=== PATIENT | female | born 1975 | race Caucasian/White ===

== ENCOUNTER 2017-12-31 16:35 | Inpatient (IN) | payer MEDICAID, SELFPAY ==
[2017-12-31 16:22] VITALS: BMI 36.9
[2017-12-31] MEDS: Lactated Ringers 1,000 ML 50 ML IV (16:50)
--- NOTE | 2017-12-31 17:27 | PCM.HP.OB ---
- Problem List (1) Polyhydramnios affecting Status: Acute (2) Advanced maternal age (AMA) in Status: Acute History Date of Admission: 12/31/17 Final PRINCESS: 01/16/18 Final PRINCESS Source: US <20 weeks Gestational age: 37 Weeks and 5 Days History of this : 42yo @ 37.5 wks c/o vaginal bleeding- pt was found to be 5-6cm with irregular contractions and made change to 7-8cm. pt was admitted in active labor. pt has h/o Polyhydramnios in and AMA. Allergies No Known Allergies Allergy (Verified 11/14/17 02:40) Current Medications Acetaminophen (Tylenol) 325 - 650 mg PO Q4H PRN PRN PRN Reason: PAIN OR FEVER >100.4F Al Hydroxide/Mg Hydroxide (Mylanta Ii) 15 - 30 ml PO Q4H PRN PRN PRN Reason: INDIGESTION Citric Acid/Sodium Citrate (Bicitra) 30 ml PO UD PRN Lactated Ringer's () 1,000 mls @ 50 mls/hr IV .Q20H CISCO Nalbuphine HCl (Nubain) 5 - 10 mg IV Q3H PRN PRN PRN Reason: PAIN (4-10/10) Ondansetron HCl (Zofran) 4 mg IV Q8H PRN PRN PRN Reason: NAUSEA Promethazine HCl (Phenergan (Ll)) 6.25 - 12.5 mg IV Q4H PRN PRN; Protocol PRN Reason: IF NAUSEA PERSISTS Sodium Chloride () 5 - 15 ml IV UD CISCO Alcohol: None Drug Use: none Number of Fetus(es): 1 Review of Systems Gastrointestinal: Reports: Abdominal Pain Physical Exam General: Alert, Oriented x3 Abdomen: Soft, Gravid Estimated gestational size: Appropriate for gestational size Presentation: Cephalic Cervix Dilation (cm): 7.5 Station: -2 Effacement (%): 80 Assessment/Plan Active and Suspected Problems Polyhydramnios affecting (Acute) Advanced maternal age (AMA) in (Acute) 42yo @ 37.5 wks, Polyhydramnios, AMA in active labor 1) admit 2) FHR/TOCO 3) PNL reviewed, GBS negative, O+, Rub imm, Syphilis Neg, HEP B neg, HIV NR 4) Nitrous for pain
[2017-12-31] MEDS: Oxytocin 30 units/NS 500 ml 30 UNITS/500 ML IV.SOLN 334 UNITS IV (17:45)
--- NOTE | 2017-12-31 17:59 | PCM.OB.VAG ---
- Problem List (1) Polyhydramnios affecting Status: Acute (2) Advanced maternal age (AMA) in Status: Acute Vaginal Delivery Maternal Presentation: Active Labor Amniotic Membrane Rupture Type: Artificial Amniotic Fluid Description: Clear Final PRINCESS: 01/16/18 Gestational age: 37 Weeks and 5 Days Date of Procedure: 12/31/17 Pre-Operative Diagnosis: Polyhydramnios, ama, term gestation in active labor Post-Operative Diagnosis: Same, live male born Surgery/ Procedure Performed: Spontaneous Vaginal Delivery Type of Anesthesia: None Description of Procedure: of live male born without complication. Delayed cord clamping performed. Presentation: Vertex Placental Delivery Description: Spontaneous Placenta Disposition: [facility] Cord Vessel Description: 3 Vessels Cord Entanglement: None Estimated Blood Loss: 250 A gender: Male (1 minute): 8 (5 minute): 8 Episiotomy Description: None Laceration: Vaginal Extension/lac - 1% lidocaine injected - Repaired with 3-0 rapide, 1st degree Medications given after delivery: IV Pitocin Complications: None
[2017-12-31] MEDS: Oxytocin 30 units/NS 500 ml 30 UNITS/500 ML IV.SOLN 167 UNITS IV (18:15)
[2017-12-31 19:29] LABS: Hematocrit 33.7 % (37-47); Hemoglobin 10.9 g/dl (12.0-15.0); Mean Corp Hgb Conc 32.3 g/gl (32-36); Mean Corpuscular Hgb 27.5 pg (27.0-32.0); Mean Corpuscular Volume 84.9 fL (81-99); Mean Platelet Vol. 11.6 fl (6.2-12.0); Platelet Count 275 K/mm3 (150-450); RBC Distribution Width CV 15.3 % (11.6-14.6); RBC Distribution Width SD 47.7 fl (35.1-43.9); Red Blood Count 3.97 M/mm3 (4.2-5.4); White Blood Count 16.5 K/mm3 (4.4-11.0)
[2017-12-31 19:30] LABS: Scan Indicated on CBC? Y/N NO
[2017-12-31 20:00] VITALS: BP 113/59; PULSE 78; RESP 18; TEMP 36.6; O2SAT 98
[2017-12-31] MEDS: Naproxen 250 MG Tablet PO (20:05)
--- NOTE | 2017-12-31 23:02 | DCINST_ITS ---
Discharge Diet: No Restrictions Discharge Activity: Return to Normal Activity, May not drive while taking narcotic pain medications., May Shower May resume sexual activity in: 4-6 weeks Additional Activity Instructions:: Nothing in the vagina for 4-6 weeks. You may return to work/school in 6 weeks. Call your doctor if your incision/area has: Continuous Slow Oozing, Sudden Increased Bleeding, Increased Pain/ Swelling, Increased Redness, Foul Smelling Discharge Additional Instructions: If you experience any of the following, contact your healthcare provider. * Bleeding that soaks a pad every hour for 2 hours * Fever 100.4 or higher * Unrelieved incision or abdominal pain * Swelling, redness, discharge or bleeding from your incision or episiotomy site * Your incision begins to separate * Problems urinating (including inability to urinate or burning while urinating) . * Visual changes * Severe headache * Flu-like symptoms * Pain or redness in one of both of your breasts * Pain, warmth, tenderness or swelling in your legs, especially the calf area * Frequent nausea and vomiting * Symptoms of depression or anxiety If you experience any of the following, call 911 or go to the nearest Emergency Room. * Chest pain * Problems breathing * Seizure activity * Partial or complete paralysis of a body part, slurred speech, weakness or drooping of the face, or a sudden inability to walk or hold your balance Allergies/Adverse Reactions: Allergies No Known Allergies Allergy (Verified 12/31/17 18:30) Medications to take at Discharge Vits [Prenatabs FA ] 1 tablet PO DAILY 07/26/15 Naproxen [Naprosyn] 250 - 500 mg PO Q8H PRN PRN #30 tab 12/31/17 The following prescriptions were given: Naproxen [Naprosyn] 250 - 500 mg PO Q8H PRN PRN #30 tab PRN Reason: Mild Pain (1-01/25) When: Call to make an appointment with your doctor in 6 weeks. If you had elevated Blood Pressure or 4th degree laceration you will need to be seen in 2 weeks. Primary Care Physician: Care Physician,No Primary [Primary Care Provider] -
[2017-12-31 23:30] VITALS: BP 131/63; PULSE 90; RESP 18; TEMP 36.5; O2SAT 98
[2018-01-01] MEDS: Naproxen 250 MG Tablet PO ×2 (04:19→12:40)
[2018-01-01 04:20] VITALS: BP 103/53; PULSE 86; RESP 18; TEMP 36.3
[2018-01-01] MEDS: Acetaminophen 500 MG Tablet PO (07:51)
[2018-01-01 08:27] VITALS: BP 115/73; PULSE 86; RESP 16; TEMP 36.7; O2SAT 98
--- NOTE | 2018-01-01 09:11 | PCM.PN.BLA ---
Progress Note S: Patient sitting up in bed, reports that baby has been very sleepy throughout the night and has not been latching well. Plans to talk and be seen by splunk consultant today. Otherwise patient denies any other issues at this time. Patient denies HALL, scotoma or dizziness. Denies any issues with ambulation or urination. O: VSS, Afebrile Nipples without cracks or blisters, no ecchymoses noted Abdomen NT x 4 quadrants, FF midline 2FB below umbilicus +2/4 reflexes in LE, no edema in LE, negative calf tenderness to palpation Perineum well-approximated, scant rubra lochia A: 42 y/o G2 now P2, PPD #1 s/p , Normal Course, Difficulties P: 1) consultation today 2) Patient may be discharged to home this evening pending discharge and improved feeding sessions 3) RTC in 4-5 weeks for pro-op visit. Patient desires PPTL, Title 19 form signed with patient today. Stefanie Kim CNM
--- NOTE | 2018-01-01 09:16 | PN_ITS ---
Progress Note S: Patient sitting up in bed, reports that baby has been very sleepy throughout the night and has not been latching well. Plans to talk and be seen by solar energy consultant and designer today. Otherwise patient denies any other issues at this time. Patient denies HALL, scotoma or dizziness. Denies any issues with ambulation or urination. O: VSS, Afebrile Nipples without cracks or blisters, no ecchymoses noted Abdomen NT x 4 quadrants, FF midline 2FB below umbilicus +2/4 reflexes in LE, no edema in LE, negative calf tenderness to palpation Perineum well-approximated, scant rubra lochia A: 42 y/o G2 now P2, PPD #1 s/p , Normal Course, Difficulties P: 1) consultation today 2) Patient may be discharged to home this evening pending discharge and improved feeding sessions 3) RTC in 4-5 weeks for pro-op visit. Patient desires PPTL, Title 19 form signed with patient today. Stefanie Kim CNM
[2018-01-01 11:29] VITALS: BP 133/70; PULSE 89; RESP 16; TEMP 36.9; O2SAT 98
--- NOTE | 2018-01-01 19:30 | NURSING ---
pt reports nicotine patch fell off after showering-pt handed patch to RN, RN discarded patch
[2018-01-01 20:15] VITALS: BP 130/76; PULSE 84; RESP 16; TEMP 37.2; O2SAT 97
[2018-01-02 01:40] VITALS: BP 129/80; PULSE 75; RESP 16; TEMP 37.2; O2SAT 98
[2018-01-02 08:10] VITALS: BP 121/79; PULSE 88; RESP 16; TEMP 36.6; O2SAT 99
--- NOTE | 2018-01-02 08:42 | PCM.PN.OB ---
Patient Problems: Active and Suspected Problems Polyhydramnios affecting (Acute) Advanced maternal age (AMA) in (Acute) Objective: pt seen at bedside, doing well. pt reports good pain control. Lochia mild. Bottle feeding. - Physical Exam General: Alert, Oriented x3 Abdomen: Soft, - - fundus firm Extremities: No Calf Tenderness Vital Signs Temp Pulse Resp BP Pulse Ox 98.9 F 75 16 129/80 H 98 01/02/18 01:40 01/02/18 01:40 01/02/18 01:40 01/02/18 01:40 01/02/18 01:40 Oxygen Delivery Method Room Air Weight: 97.7 kg Body Mass Index (BMI) 36.9 Intake and Output for Last 24 Hours 12/31/17 01/01/18 01/02/18 23:59 23:59 23:59 Intake Total 1300 / 1300 Output Total 400 / 400 Balance 900 / 900 Assessment/Plan Active and Suspected Problems Polyhydramnios affecting (Acute) Advanced maternal age (AMA) in (Acute) PPD#2, doing well routine care ambulation dc home
== END 2018-01-02 10:10 | disposition home or self-care (01) | DRG 373 ==
LOC: WPOUT 16:42
PROVIDERS: Admitting Provider Obstetrics & Gynecology; Visit Provider Obstetrics & Gynecology
DX: O40.3XX0 Polyhydramnios, third trimester, not applicable or unspecified (principal); O71.4 Obstetric high vaginal laceration alone; O09.523 Supervision of elderly multigravida, third trimester; Z3A.37 37 weeks gestation of pregnancy; Z37.0 Single live birth
CPT/HCPCS: 59025; 59050; 85027; 86850; 86900; 99218; J7120; G0378

== ENCOUNTER → 2018-03-18 07:27 | Outpatient (CLI) | payer MEDICAID, SELFPAY | PROVIDERS: Visit Provider Obstetrics & Gynecology | DX: Z53.9 Procedure and treatment not carried out, unspecified reason (principal) ==

== ENCOUNTER 2021-12-28 15:54 | Outpatient (CLI) | payer MEDICAID, SELFPAY ==
[2021-12-28 17:11] LABS: Absolute Lymphocyte Count 3.62 X10^3/uL (0.83-4.51); Absolute Neutrophil Count 6.4 X10^3/uL (2.0-7.7); Basophil# 0.06 X10^3/uL; Basophil% 0.5 % (0-1); Eosinophil# 0.37 X10^3/uL; Eosinophils% 3.2 % (0-5); Hematocrit 44.7 % (37-47); Hemoglobin 14.5 g/dL (12.0-15.0); Lymphocyte # 3.62 X10^3/ul (0.83-4.51); Lymphocyte % 31.8 % (19-41); Mean Corp Hgb Conc 32.4 g/dL (32-36); Mean Corpuscular Hgb 27.8 pg (27.0-32.0); Mean Corpuscular Volume 85.8 fL (81-99); Mean Platelet Vol. 11.1 fl (6.2-12.0); Monocyte# 0.86 X10^3/uL; Monocyte% 7.5 % (0-10); NRBC Flagged by Analyzer 0 % (0-5); Neutrophil # 6.41 X10^3/uL (2.7-7.7); Neutrophil % 56.3 % (47-70); Platelet Count 290 K/mm3 (150-450); RBC Distribution Width CV 14.2 % (11.6-14.6); RBC Distribution Width SD 44.1 fl (35.1-43.9); Red Blood Count 5.21 M/mm3 (4.2-5.4); White Blood Count 11.4 K/mm3 (4.4-11.0)
[2021-12-28 17:43] LABS: ALB/GLOB Ratio 0.7 RATIO (0.9-2.4); AST(SGOT) 14 U/L (15-37); Alanine Aminotransfer ALT/SGPT 28 U/L (13-56); Albumin, Serum 2.9 g/dL (3.2-5.0); Alkaline Phosphatase 80 U/L (45-117); Anion Gap 4 (5-15); BUN 13 mg/dL (7-18); BUN/Creat Ratio 16.3 RATIO (10-20); Calcium,Total 8.5 mg/dL (8.5-10.1); Chloride 102 mmol/L (98-107); EST Glomerular Filtration Rate 82 mL/min (>60); Est Glom Filt Rate - Afr Amer 100 mL/min (>60); Globulin 4.1 g/dL (2.2-4.2); Glucose 79 mg/dL (74-106); Potassium 3.9 mmol/L (3.5-5.1); Sodium Level 137 mmol/L (136-145); Thyroid Stim Hormone (TSH) 2.75 uIU/mL (0.358-3.74)
[2021-12-29 09:19] LABS: Hepatitis C Antibody Non-Reactive (Nonreactive); Vitamin D,25 Hydroxy 31.9 ng/mL
== END 2021-12-28 23:59 | disposition home or self-care (01) ==
LOC: POLAB3 15:55
PROVIDERS: PCP Family Medicine Geriatric Medicine; Visit Provider Family Medicine Geriatric Medicine
DX: Z00.00 Encounter for general adult medical examination without abnormal findings (principal); E55.9 Vitamin D deficiency, unspecified; R53.83 Other fatigue
CPT/HCPCS: 36415; 80053; 82306; 84443; 85025; 86803

== ENCOUNTER 2022-02-06 11:56 | Outpatient (CLI) | payer MEDICAID, SELFPAY ==
--- NOTE | 2022-02-06 12:00 | BI_ITS ---
MAMMOGRAPHY - BILATERAL SCREENING REASON FOR EXAM: Female, 46 years old. Routine annual screening examination. PERTINENT HISTORY: Non-contributory. TECHNIQUE: Digital bilateral breast norman (3D mammographic acquisition) in the CC and MLO projections. 2-D mediolateral oblique (MLO) and craniocaudad (CC) views of both breasts were obtained. CAD: Full Field Digital Mammography with Computer Added Detection was performed. COMPARISON: Comparison is made with prior outside examination dated 06/23/2020. FINDINGS: Breast Composition: There are scattered areas of fibroglandular density. There are no dominant masses or suspicious calcifications. There is a stable 7.5 mm well-defined nodule in the anterior slightly upper lateral aspect of the right breast. A central fatty hilum is seen most likely presenting a small lymph node. Stable small benign appearing bilateral axillary lymph nodes. No other significant abnormalities are identified. There has been no significant change since the prior study. BI/SCRN MAMM (CAD)W/NORMAN BILAT IMPRESSION: Stable bilateral screening mammogram. Yearly follow-up mammogram recommended. (A) ASSESSMENT CATEGORY: BIRADS Category 2: Benign. A letter regarding these results will be sent to the patient by the facility within 30 days. Approximately 10% of breast cancers are not detected by mammography. A normal mammogram should not delay biopsy of a clinically suspicious abnormality. [id number] Electronically Signed: Bo Grewal MD at 12:45 EDT ,
== END 2022-02-06 23:59 | disposition home or self-care (01) ==
PROVIDERS: PCP Family Medicine Geriatric Medicine; Visit Provider Family Medicine Geriatric Medicine
DX: Z12.31 Encounter for screening mammogram for malignant neoplasm of breast (principal)
CPT/HCPCS: 77063; 77067

== ENCOUNTER → 2022-03-28 | Outpatient (CLI) | payer MEDICAID, SELFPAY ==
[2022-03-28 17:10] LABS: Absolute Lymphocyte Count 3.51 X10^3/uL (0.83-4.51); Absolute Neutrophil Count 6.9 X10^3/uL (2.0-7.7); Basophil% 0.9 % (0-1); Eosinophil# 0.29 X10^3/uL; Eosinophils% 2.5 % (0-5); Hematocrit 40.8 % (37-47); Hemoglobin 13.4 g/dL (12.0-15.0); Lymphocyte # 3.51 X10^3/ul (0.83-4.51); Lymphocyte % 30.8 % (19-41); Mean Corp Hgb Conc 32.8 g/dL (32-36); Mean Corpuscular Hgb 28.9 pg (27.0-32.0); Mean Corpuscular Volume 87.9 fL (81-99); Mean Platelet Vol. 12.1 fl (6.2-12.0); Monocyte# 0.56 X10^3/uL; Monocyte% 4.9 % (0-10); NRBC Flagged by Analyzer 0 % (0-5); Neutrophil # 6.92 X10^3/uL (2.7-7.7); Neutrophil % 60.6 % (47-70); Platelet Count 238 K/mm3 (150-450); RBC Distribution Width CV 14.9 % (11.6-14.6); Red Blood Count 4.64 M/mm3 (4.2-5.4); White Blood Count 11.4 K/mm3 (4.4-11.0)
[2022-03-28 17:45] LABS: ALB/GLOB Ratio 0.8 RATIO (0.9-2.4); AST(SGOT) 21 U/L (15-37); Alanine Aminotransfer ALT/SGPT 37 U/L (13-56); Albumin, Serum 3.2 g/dL (3.2-5.0); Alkaline Phosphatase 88 U/L (45-117); Anion Gap 6 (5-15); BUN 14 mg/dL (7-18); BUN/Creat Ratio 14.8 RATIO (10-20); Calcium,Total 8.4 mg/dL (8.5-10.1); Chloride 105 mmol/L (98-107); Creatinine, Serum 0.94 mg/dL (0.55-1.02); EST Glomerular Filtration Rate 68 mL/min (>60); Est Glom Filt Rate - Afr Amer 82 mL/min (>60); Glucose 75 mg/dL (74-106); Potassium 3.7 mmol/L (3.5-5.1); Protein, Total 7.2 g/dL (6.4-8.2); Sodium Level 139 mmol/L (136-145); Thyroid Stim Hormone (TSH) 4.19 uIU/mL (0.358-3.74)
== END | disposition home or self-care (01) ==
LOC: POLAB3 13:07
PROVIDERS: PCP Family Medicine Geriatric Medicine; Visit Provider Family Medicine Geriatric Medicine
DX: R53.83 Other fatigue (principal)
CPT/HCPCS: 36415; 80053; 84443; 85025

== ENCOUNTER → 2022-08-23 | Outpatient (CLI) | payer MEDICAID, SELFPAY ==
[2022-08-23 17:22] LABS: Absolute Lymphocyte Count 1.99 X10^3/uL (0.83-4.51); Absolute Neutrophil Count 8.9 X10^3/uL (2.0-7.7); Basophil# 0.05 X10^3/uL; Basophil% 0.4 % (0-1); Eosinophil# 0.24 X10^3/uL; Hemoglobin 13.8 g/dL (12.0-15.0); Lymphocyte # 1.99 X10^3/ul (0.83-4.51); Lymphocyte % 16.8 % (19-41); Mean Corp Hgb Conc 32.1 g/dL (32-36); Mean Corpuscular Hgb 27.5 pg (27.0-32.0); Mean Corpuscular Volume 85.8 fL (81-99); Mean Platelet Vol. 12.1 fl (6.2-12.0); Monocyte# 0.55 X10^3/uL; Monocyte% 4.6 % (0-10); NRBC Flagged by Analyzer 0 % (0-5); Neutrophil # 8.94 X10^3/uL (2.7-7.7); Neutrophil % 75.7 % (47-70); Platelet Count 248 K/mm3 (150-450); RBC Distribution Width CV 14.2 % (11.6-14.6); RBC Distribution Width SD 45.1 fl (35.1-43.9); Red Blood Count 5.01 M/mm3 (4.2-5.4); White Blood Count 11.8 K/mm3 (4.4-11.0)
[2022-08-23 17:33] LABS: ALB/GLOB Ratio 0.5 RATIO (0.9-2.4); AST(SGOT) 12 U/L (15-37); Alanine Aminotransfer ALT/SGPT 24 U/L (13-56); Albumin, Serum 2.8 g/dL (3.2-5.0); Alkaline Phosphatase 101 U/L (45-117); Anion Gap 7 (5-15); BUN 38 mg/dL (7-18); BUN/Creat Ratio 31.4 RATIO (10-20); Calcium,Total 9.6 mg/dL (8.5-10.1); Chloride 103 mmol/L (98-107); Creatinine, Serum 1.21 mg/dL (0.55-1.02); EST Glomerular Filtration Rate 51 mL/min (>60); Est Glom Filt Rate - Afr Amer 62 mL/min (>60); Globulin 5.3 g/dL (2.2-4.2); Glucose 106 mg/dL (74-106); Potassium 3.3 mmol/L (3.5-5.1); Protein, Total 8.1 g/dL (6.4-8.2); Sodium Level 137 mmol/L (136-145)
== END | disposition home or self-care (01) ==
LOC: POLAB3 16:06
PROVIDERS: PCP Family Medicine Geriatric Medicine; Visit Provider Family Medicine Geriatric Medicine
DX: R10.9 Unspecified abdominal pain (principal); N39.0 Urinary tract infection, site not specified
CPT/HCPCS: 36415; 80053; 85025; 87086; 87088

== ENCOUNTER → 2022-08-24 | Outpatient (CLI) | payer MEDICAID, SELFPAY ==
[2022-08-24 10:55] LABS: Anion Gap 6 (5-15); BUN 19 mg/dL (7-18); BUN/Creat Ratio 21.5 RATIO (10-20); Calcium,Total 8.9 mg/dL (8.5-10.1); Chloride 110 mmol/L (98-107); Creatinine, Serum 0.88 mg/dL (0.55-1.02); EST Glomerular Filtration Rate 73 mL/min (>60); Est Glom Filt Rate - Afr Amer 88 mL/min (>60); Glucose 93 mg/dL (74-106); Potassium 3.4 mmol/L (3.5-5.1); Sodium Level 143 mmol/L (136-145)
== END | disposition home or self-care (01) ==
LOC: POLAB3 10:07
PROVIDERS: PCP Family Medicine Geriatric Medicine; Visit Provider Family Medicine Geriatric Medicine
DX: N17.9 Acute kidney failure, unspecified (principal)
CPT/HCPCS: 36415; 80048

== ENCOUNTER → 2022-09-15 | Outpatient (CLI) | payer MEDICAID, SELFPAY ==
--- NOTE | 2022-09-15 07:57 | US_ITS ---
We are attempting to reach an attending provider to discuss findings. An addendum with communication details will be sent when the communication is complete. STUDY: ABDOMINAL ULTRASOUND - RIGHT UPPER QUADRANT REASON FOR VISIT: Female, 47 years old PAIN RUQ TECHNIQUE: Ultrasound evaluation of the right upper quadrant was performed with real-time and static paige-scale imaging. TECHNICAL QUALITY: Adequate. COMPARISON: None. FINDINGS: Liver: The liver measures 17.8 cm. There is normal echogenicity of the liver. There is a suggestion of mild intrahepatic ductal dilatation. There is hepatic color flow. The direction of portal flow is hepatopetal. There is no demonstrated mass lesion. Gallbladder: Normal distended gallbladder. The gallbladder wall measures 2.6 mm. Technology notes describes slight tenderness over the gallbladder area. There is no pericholecystic fluid. There are a few small layering gallstones in the gallbladder and/or sludge. Common Bile Duct (C.B.D.): The common bile duct measures 5.2 - 6.8 mm. It may measure up to 9 mm at the level of the pancreas. Pancreas: Normal size of the head, body and tail of the pancreas. There is normal echogenicity of the pancreas. There is no demonstrated pancreatic mass or cyst. Right Kidney: Normal size of the right kidney. The right kidney measures 10.1 x 5.1 x 4.2 cm. Normal renal cortex. The right cortex measures 1.2 cm. There is no demonstrated renal mass or cyst. There is no right hydronephrosis. US/Abdomen Limited IMPRESSION: Distention of the gallbladder. Upper limits of normal wall thickening. Distended common bile duct. Findings suggest mild intrahepatic and extrahepatic ductal dilatation. Cholelithiasis. Sonographic Muller sign is described as positive or described as mild tenderness. This constellation of findings raises concern for acute cholecystitis. Potentially nonvisualized sludge or stones in the common duct could have this appearance. Electronically Signed: Melody Navarrete MD at 11:07 EDT ,
== END | disposition home or self-care (01) ==
PROVIDERS: PCP Family Medicine Geriatric Medicine; Referring Provider Family Medicine Geriatric Medicine; Visit Provider Family Medicine Geriatric Medicine
DX: R10.9 Unspecified abdominal pain (principal)
CPT/HCPCS: 76705

== ENCOUNTER 2022-10-01 08:29 | Day surgery (SDC) | payer MEDICAID, SELFPAY ==
--- NOTE | 2022-09-28 08:35 | EKG12_ITS ---
Test Reason : PRE-OP Blood Pressure : / mmHG Vent. Rate : 076 BPM Atrial Rate : 076 BPM P-R Int : 144 ms QRS Dur : 084 ms QT Int : 388 ms P-R-T Axes : 067 012 043 degrees QTc Int : 436 ms Normal sinus rhythm Normal ECG Confirmed by SOULEYMANE DUONG, ALIN ([id number]), script editor NAYE ANGULO ([id number]) on 10/02/2022 10:56:51 AM Referred By: Percy Corey Confirmed By:MALENA COMER MD
[2022-09-28 10:00] LABS: Hematocrit 42.7 % (37-47); Hemoglobin 13.5 g/dL (12.0-15.0); Mean Corp Hgb Conc 31.6 g/dL (32-36); Mean Corpuscular Hgb 27.5 pg (27.0-32.0); Mean Platelet Vol. 11.5 fl (6.2-12.0); Platelet Count 316 K/mm3 (150-450); RBC Distribution Width CV 14.6 % (11.6-14.6); Red Blood Count 4.91 M/mm3 (4.2-5.4); White Blood Count 10.1 K/mm3 (4.4-11.0)
[2022-09-28 10:55] LABS: ALB/GLOB Ratio 0.7 RATIO (0.9-2.4); AST(SGOT) 24 U/L (15-37); Alanine Aminotransfer ALT/SGPT 43 U/L (13-56); Albumin, Serum 3.2 g/dL (3.2-5.0); Alkaline Phosphatase 112 U/L (45-117); Anion Gap 6 (5-15); BUN 13 mg/dL (7-18); Calcium,Total 9.2 mg/dL (8.5-10.1); Chloride 105 mmol/L (98-107); Creatinine, Serum 0.76 mg/dL (0.55-1.02); EST Glomerular Filtration Rate 87 mL/min (>60); Est Glom Filt Rate - Afr Amer 105 mL/min (>60); Estimated Creatinine Clearance 76.51 ml/min; Globulin 4.6 g/dL (2.2-4.2); Glucose 80 mg/dL (74-106); Lipase 129 U/L (73-393); Potassium 3.9 mmol/L (3.5-5.1); Protein, Total 7.8 g/dL (6.4-8.2); Sodium Level 139 mmol/L (136-145)
[2022-10-01] VITALS (7 sets, daily range): BP systolic 109–132; BP diastolic 73–84; PULSE 78–90; RESP 15–18; TEMP 36.4–37.1; O2SAT 96–100; BMI 28.8
--- NOTE | 2022-10-01 08:38 | PCM.HP.BLA ---
History and Physical Date of Admission: 10/01/22 Visit Reasons:?GALLBLADDER Chief Complaint: gallbladder Is patient in pain?: No Allergies No Known Allergies Allergy (Verified 09/26/22 14:28) PFSH Medical History? COVID-19 Family History?(Updated 09/26/22 @ 14:23 by Sophia Blackwell) Mother Hypertension CVA (cerebral vascular accident) Colon cancerFather Diabetes Heart disease Social History?(Updated 09/26/22 @ 14:24 by Sophia Blackwell) Smoking Status:? Current every day smoker tobacco type: cigarettes Tobacco: How many years used:? 1 alcohol intake:? never substance use type:? does not use HPI HPI HPI: 47-year-old female presents in consultation regarding gallbladder disease.? The patient is referred by Dr. Dominick Squires and a written copy my surgical consult recommendations will return to him.? It is noted that December 2021 she had COVID-19.? As of August 23, 2022 her white blood cell count was 11.8 but that seems to be in line with her normal white blood cell counts.? Hemoglobin 13.8 with hematocrit 43 and a platelet count of 248,000.? As of August 24, 2022 potassium low at 3.4 with a BUN of 19 creatinine 0.88.? On September 15, [address] Dominick Squires she had a right upper quadrant ultrasound.? There is a suggestion of mild intrahepatic ductal dilatation.? Normally distended gallbladder.? The gallbladder wall measures 2.6 mm.? No pericholecystic fluid.? A few small layering gallstones in the gallbladder and/or sludge.? The common bile duct measures 5.2 to 6.8 mm and may measure 9 mm at the level of the pancreas.? Findings were concerning for a possible acute cholecystitis.? Could not exclude the possibility of? choledocholithiasis Patient states that since August she is having bouts of mid abdominal pain and right upper quadrant abdominal pain.? She does not correlate with any particular foods.? She will have nausea with it as well.? The pain will wake her at night. 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 She claims to otherwise be healthy but she has a long-term history of tobacco use of at least a pack per day.? No previous abdominal operations ROS General General: No weight change, appetite, fatigue, colon cancer, breast cancer or weakness HEENT HEENT: No difficulty swallowing, eye injury, eye surgery, swollen glands or hoarseness Endo Endocrine: No thyroid disease, diabetes mellitus, thyroid cancer, Hair loss, heat intolerance or cold intolerance Skin Skin: No rash or changing moles Breast Breast: No left breast lump, right breast lump, nipple discharge, breast pain, abnormal mammogram, abnormal US or breast enlargement Musc Musculoskeletal: No back problems, arthritis, rheumatoid arthritis, gout or joint pain Cardio Cardiovascular: No murmur, pacemaker, heart disease, atrial fibrillation, high blood pressure, heart attack, heart stent, palpitations, shortness of breat with exertion or chest pain Psych Psychiatric: No depression, anxiety or hearing voices Resp Respiratory: No shortness of breath, No sleep apnea, No cough, No COPD, No asthma, No emphysema and No wheezing Gastro Gastrointestinal: Yes abdominal pain, Yes nausea or vomiting, No diarrhea, No constipation, No blood in stool, No acid reflux, No hemorrhoids, No ulcers, Yes gallbladder problem and No black,tarry stools Art Hematologic: No blood thinners, No blood disorders, No bleeding, No anemia and No blood clots Neuro Neurologic: No system reviewed and no additional complaints, except as documented, No as per HPI, No abnormal gait, No abnormal hearing, No abnormal movements, No abnormal speech, No behavioral changes, No burning sensations, No confusion, No convulsions, No disequilibrium, No dizziness, No localized weakness, No frequent falls, No headache(s), No lack of coordination, No loss of vision, No memory loss, No numbness, No other visual disturbances, No radicular pain, No restless legs, No sensory deficit, No syncope, No tingling, No tremor(s), No weakness and No other Exam Const General: cooperative, comfortable and no acute distress Other: Heavy odor of tobacco HENMT Head: normal to inspection Eyes General: appearance normal, both eyes and all related structures Neck Neck: normal visual inspection Chest Other: Kyphosis of the thoracic spine noted with increased AP diameter Resp Effort & Inspection: normal respiratory effort Auscultation: clear to auscultation bilaterally Cardio Rate: regular rate Rhythm: regular rhythm GI Inspection: normal to inspection Other: Soft, nontender, no hepatosplenomegaly, normal bowel sounds Musc Cervical Spine: normal cervical lordosis Skin General: no rashes or lesions noted Neuro General: patient alert, patient awake and patient oriented x3 Extrem General: no calf tenderness Psych Appearance: grossly normal Assessment and Plan Assessment and Plan (1) Cholelithiasis with chronic cholecystitis: ?Status:?Chronic ?Plan: To ask and have questions answeredI recommended the patient a laparoscopic cholecystectomy with cholangiography.? I have described to the patient and her the potential for choledocholithiasis in addition to chronic cholecystitis cholelithiasis.? I discussed potential for a laparoscopic common bile duct exploration.? We discussed potential need for postoperative ERCP.. Regarding the patient's chronic tobacco use I have vigorously encouraged her to cease her cigarette smoking.? She states that she has been considering that but finds it very difficult. We will try to schedule and expedite her care at a time.? That would allow for a more extensive biliary tract procedure if required.? I appreciate the opportunity of assisting with her surgical care Copy: Dr. Dominick Corey M.D., F.A.C.S I have examined the patient and the H&P has been reviewed. There are no clinical changes since date of exam. Percy Corey M.D., F.A.C.S.
[2022-10-01 08:56] LABS: Internal QC Validated? YES +Cl - CLEAR BKGD; Pregnancy, Urine Negative Negative
[2022-10-01] MEDS: Lactated Ringers 1,000 ML 15 ML IV (09:07)
--- NOTE | 2022-10-01 10:11 | DCINST_ITS ---
Discharge Instructions Procedure General Surgery Diet Discharge Diet: Light diet - advance as tolerated (if you have questions about your diet instructions, please talk to you doctor.) Activity Discharge Activity: May Not Drive (for 3-5 days or while taking narcotic pain medicine.) May shower in (days): 1 Lifting Restrictions: 10 pounds Dressing / Incision Call your doctor if your incision/area has: Continuous Slow Oozing, Sudden Increased Bleeding, Increased Pain/ Swelling, Increased Redness and Foul Smelling Discharge Call your doctor if you observe: Fever of 101 or Higher Suture Line Care: Avoid Pulling/Pushing and Avoid Pinching/Bending Additional Dressing/Incision Instructions:: Change or remove dressing in 4 days. Leave steri-strips in place for 1 week. Follow Up Care Please Follow Up With: Percy Corey MD When: Call [phone] to make an appointment to be seen in about 10 days. Test Results: Test results from this visit will be discussed in further detail at your follow- up appointment, if applicable. Discharge Plan Admission Attending Provider: Percy Corey Primary Care Provider: Dominick Squires Chi Discharge Orders/Prescriptions Prescriptions: No Action NK Other Ambulatory Orders: 12 Lead EKG (Routine) Timeframe: [id number] Location: None Selected Ordered By: Dr. Live Kinney Referrals / Follow Up: Dominick Squires Chi, MD [Primary Care Provider] - Disposition Disposition (needs filled in before D/C Order can be placed): Home, Self Care
[2022-10-01] MEDS: Cefazolin 2 GM in 0.9% Normal Saline 100 ML IV (10:29)
--- NOTE | 2022-10-01 10:30 | GALL_PTH ---
PATIENT: THEODORE HANCOCK [place] [facility] [place][id number] AGE/SX: 47/F ROOM: RE10/01/[address]: Dr. Percy Corey MD : 1975 BED: DIS: 10/01/2022 SPEC #: [id number] RECD: 10/01/22 14:41 STATUS: CHAR REBea #: [id number] BELIA: 10/01/22 10:[address]: Percy Corey DEPT: SURGICAL PATHOLOGY RECD BY: Tesha Hanson ENTERED: 10/02/22 08:03 SP TYPE: JANICE VELASQUEZ DR: Dr. Dominick Squires MD Tissues: Gallbladder, NOS Procedures: Surgery Specimen Level III HEADER OPERATION: Laparoscopic, cholecystectomy with IOC PRE-OP DIAGNOSIS: Cholelithiasis with chronic cholecystitis TISSUE SUBMITTED: Gallbladder MICROSCOPIC DIAGNOSIS Gallbladder, cholecystectomy: Acute and chronic cholecystitis and cholelithiasis. /SJ 10/03/22 MICROSCOPIC DESCRIPTION Slides are reviewed. GROSS DESCRIPTION Received is one container labeled with the patient's name and designated gallbladder. The specimen consists of a gallbladder measuring 8 cm in length and up to 3.5 cm in diameter. The external surface is pink-aponte, smooth and glistening for the most part. Focally it is granular, hemorrhagic and contains cautery artifact. The gallbladder contains aponte mucoid bile and multiple multifaced green stones measuring in aggregate 6 x 5 x 1 cm and 0.7 to 1 cm in greatest dimension. The mucosa is without any mass lesions. The gallbladder wall measures up to 0.3 cm in thickness. A pink nodule is noted adjacent to the cystic duct measuring 1 cm in greatest dimension. Learning And Development Analyst sections from the gallbladder, cystic duct and lymph node are submitted in one cassette. / JAROCHO:efraín 10/02/2022 TC:2 CPT: 58755
--- NOTE | 2022-10-01 10:40 | RAD_ITS ---
STUDY: INTRAOPERATIVE CHOLANGIOGRAM. REASON FOR EXAM: Female, 47 years old. LAP ARIEL WITH IOC FLUOROSCOPY TIME (if supplied): ( 44 seconds ) minutes/seconds. A cine loop of 77 images was submitted. TECHNIQUE: An intraoperative Cholangiogram was performed by the surgeon. Imaging was submitted. COMPARISON: None. FINDINGS: Mild dilatation of the common bile duct. No intraluminal filling defect is seen. There is free flow of contrast into the duodenum. RAD/Cholangiogram/ O R,Initial IMPRESSION: Mild dilatation of the common bile duct. No intraluminal filling defect is seen. There is free flow of contrast into the duodenum. Electronically Signed: Bo Grewal MD at 14:37 EST ,
[2022-10-01] MEDS: Bupivacaine 0.25% 30 ML Vial (10:41)
[2022-10-01] MEDS: Sugammadex Sodium 200 MG/2 ML VIAL IV (11:54)
--- NOTE | 2022-10-01 11:54 | PCM.OPRPT ---
Report of Operation Date of Procedure: 10/01/22 Pre-Operative Diagnosis: Chronic cholecystitis cholelithiasis Post-Operative Diagnosis: Same Surgery/Procedure Performed:: Laparoscopic cholecystectomy with cholangiograms Description of Surgical Findings:: Timeout and informed consent was obtained. 47-year-old female was taken to the operating placed on the table underwent general endotracheal intubation esthesia. Ancef 2 g were given intravenously preoperatively. The abdomen sterilely prepped and draped. 0.25% Marcaine was used as a local anesthetic. Throughout the procedure a total of 30 cc was used. Skin sites were reanesthetized. A vertical infraumbilical incision was created holding sutures of 0 Vicryl placed varies needle inserted saline drop test performed the abdomen was insufflated with CO2 to a pressure of 10 mmHg pressure. 10 mm trocar inserted. 10 mm laparoscope inserted. No evidence of any trocar injuries. Under direct visualization 5 mm ports were placed in the epigastric mid abdomen right upper quadrant. There were adhesions of omentum to the gallbladder these had to be sharply and bluntly electrocautery dissected free. The gallbladder itself was quite thick-walled. There was significant mount inflammation at the infundibular area. Using blunt dissection and operative section identified the cystic artery and a thickened cystic duct. I did dissection on the infundibular area of the gallbladder to the liver bed to completely freed this up to have critical view. Then placed 2 Hem-o-stanislav clips proximally the cystic artery prior to transecting it. A Hem-o-stanislav clip was placed on the cystic duct and incision was made in the cystic duct and through a 14-gauge Angiocath was able to place a cholangiogram catheter and secured with a Hem-o-stanislav clip. Fluoroscopically controlled cholangiograms were obtained demonstrating initially lack of flow into the common bile duct but after just a few seconds of rest a repeat injection demonstrated free flow into the small bowel. It is of note that at the very start of the operation the patient did receive a milligram of glucagon IV. There was no evidence of any filling defects. The cholangiogram catheter was removed and 2 large Hem-o-stanislav clips were placed on the cystic duct stump prior to transecting it. The gallbladder was dissected free from the liver bed. What appeared to be a duct of Lucier was secured with a Hem-o-stanislav clip. The gallbladder was quite inflamed and adherent to the liver and significant time and TDM was required to dissected free. The gallbladder was then was placed in a retrieval bag. There was no bile or stone spillage. Fibular was placed in the liver bed to further secure hemostasis. The right upper quadrant was irrigated and aspirated free of excess fluid. The gallbladder was removed at the umbilicus and this did not require fascial enlargement. The abdomen was allowed to deflate through an antiviral valve. The fascia at the umbilicus was approximated a running 0 Vicryl. Skin edges approximated opted for Monocryl subdermal stitches. Steri-Strips Telfa OpSite dressings applied. Sponge and instrument and needle counts were reported to the surgeon to be correct. Specimen gallbladder. Drains none. Blood loss minimal. Percy Corey M.D., F.A.C.S. Surgeon: Percy Corey Type of Anesthesia: General and Local Anesthesiologist: Millicent Ervin
[2022-10-01] MEDS: HYDROcodone Bitartrate/Apap 5/325 Tablet PO (13:17)
== END 2022-10-01 14:17 | disposition home or self-care (01) ==
LOC: SDC 08:30 → AC 08:30
PROVIDERS: Anesthesiology; PCP Family Medicine Geriatric Medicine; Referring Provider Surgery; Visit Provider Surgery
PROC: (CPT 47610; principal; 2022-10-01 10:10)
DX: K80.12 Calculus of gallbladder with acute and chronic cholecystitis without obstruction (principal); F17.210 Nicotine dependence, cigarettes, uncomplicated
CPT/HCPCS: 47563; 00790; 36415; 74300; 76000; 80053; 81025; 83690; 85027; 87428; 88304; 93005; J7120; J1610; J2405

== ENCOUNTER 2022-10-07 21:59 | Emergency (ER) | payer MEDICAID, SELFPAY ==
[2022-10-07 21:59] VITALS: BP 115/82; PULSE 86; RESP 16; TEMP 36.4; O2SAT 100; BMI 28.3
--- NOTE | 2022-10-07 22:29 | ED.VIS.BACK ---
HPI History of Present Illness Chief Complaint: Other, Pain/Inj Narrative Narrative: 47-year-old female who denies significant past medical history presents with neck pain that is been worsening over the last few days. She states she had a gradual onset of neck pain on the left side greater than the right side that is worse with movement. She denies any injury. No fevers or chills. No difficulty swallowing, no radiation down her arms. Pain is worse whenever she moves her head to either side. It seems to be more on the left side than the right. She denies any intravenous drug use. No injury to her neck. She was taking Benadryl and ibuprofen without relief of her symptoms. PFSH PFS Medical History COVID-19 Smoker Home Medications hydrocodone-acetaminophen 5-325mg 5mg-325mg 1 tab PO Q6H PRN pain 3 days #8 tabs 10/01/22 [Rx Last Taken Unknown] cyclobenzaprine 10 mg tablet 10 mg PO TID PRN muscle spasm #20 tabs 10/07/22 [Rx Last Taken Unknown] naproxen 500 mg tablet (Naprosyn) 500 mg PO BID PRN pain #20 tabs 10/07/22 [Rx Last Taken Unknown] Allergy/AdvReac Type Severity Reaction Status Date / Time No Known Allergies Allergy Verified 09/27/22 15:08 Family History Mother Hypertension CVA (cerebral vascular accident) Colon cancer Father Diabetes Heart disease Surgical History History of removal of cyst History of wisdom tooth extraction Social History Smoking Status: Current every day smoker tobacco type: cigarettes Tobacco: How many years used: 1 alcohol intake: never substance use type: does not use ROS ROS ED ROS Narrative Constitutional: No fever, no chills. HEENT: No sore throat. Positive neck pain. No loss of vision. No rhinorrhea. Cardiovascular: No chest pain. No palpitations. No pedal edema. Respiratory: No cough, no shortness of breath. Abdominal: No abdominal pain. No nausea. No vomiting. Genitourinary: No dysuria. No hematuria. Musculoskeletal: No myalgias. No arthralgias. Positive cervical neck pain worse with movement in any direction. Neurologic: No headaches. No dizziness. No lightheadedness. Skin: No rash. No change in color. Psychiatric: No depression. No anxiety. EXAM Physical Exam Narrative Exam Narrative: Afebrile. Vital signs noted. HEENT: Normocephalic. Atraumatic. PERRL, EOMI. Neck soft and supple. No point tenderness or step off. Diffuse tenderness to palpation paraspinal neck muscles. Range of motion mildly limited secondary to pain but able to flex and extend head, and turn head left and right. Cardiovascular: Regular rate and rhythm. No murmurs, rubs, or gallops appreciated. Respiratory: No tachypnea. Lungs clear to auscultation bilaterally. Gastrointestinal: Abdomen soft, nontender, with normoactive bowel sounds. No rebound or guarding. Neurological: Awake. Alert. Nonfocal, nonlateralizing. Skin: No rash. Normal color. No pallor. Musculoskeletal: No pedal edema. Full range of motion extremities. Const Vital Signs: 10/07/22 21:59 10/07/22 22:58 Temperature 97.6 F L Temperature Source Temporal Pulse Rate 86 Respiratory Rate 16 Respiratory Effort Normal Respiratory Pattern Normal Blood Pressure 115/82 H Blood Pressure Mean 93 Pulse Ox 100 Oxygen Delivery Method Room Air MDM MDM MDM Narrative Medical decision making narrative: Additionally she feels she has more of a cervical strain. X-rays were obtained of the cervical spine and 2-3 views. She was administered an intramuscular injection of 60 mg of Toradol and Flexeril 10 mg orally. My interpretation of the x-ray shows no evidence of acute fracture, no acute process. I do feel she has more of an myofascial strain of her neck. Treatment will be symptomatic with application of heat and ice alternatively as needed. She was written prescriptions for naproxen and Flexeril. She will follow-up with her primary care provider. IFISH can be discharged safely home with follow-up. Return instructions were reviewed. Disposition is discharged home in stable condition. Radiography Diagnostic Testing: Clinical Impression(s) from Imaging Studies Cervical Spine X-Ray 10/07/22 22:41 IMPRESSION: Normal x-ray examination of the visualized cervical spine. Electronically Signed: Wilber Bernard DO at 23:04 [facility] Reading Location ID and State: [facility] / [place] Tel [phone], Service support , Discharge Plan Triage Chief Complaint: Other, Pain/Inj ED Provider: Lenny Weaver Dx/Rx/DC Orders Clinical Impression: Cervical myofascial strain, Neck pain Instructions: ED Neck Pain, ED Neck Sprain or Strain Prescriptions: New naproxen [Naprosyn] 500 mg tablet 500 mg PO BID PRN (Reason: pain) Qty: 20 0RF cyclobenzaprine 10 mg tablet 10 mg PO TID PRN (Reason: muscle spasm) Qty: 20 0RF No Action hydrocodone-acetaminophen 5-325 mg tablet 1 tab PO Q6H PRN (Reason: pain) 3 Days Qty: 8 0RF Primary Care Provider: Dominick Squires Chi Referrals: Dominick Squires Chi, MD [Primary Care Provider] - 1-2 Days if not improving Disposition Disposition: Home, Self Care
--- NOTE | 2022-10-07 22:41 | RAD_ITS ---
STUDY: X-RAY - CERVICAL SPINE REASON FOR EXAM: Female, 47 years old. Neck pain for several days. No known injury. TECHNIQUE: 3 view(s) of the cervical spine were obtained. COMPARISON: None FINDINGS: Normal anterior atlantoaxial articulation. Normal odontoid process. Normal cervical lordosis. Normal vertebral bodies and endplates. Normal disc space heights. There is no evidence of acute fracture or loss of vertebral axial height. There is maintenance of normal alignment. The soft tissue structures are unremarkable. RAD/Cerv Spine 2 or 3 Views IMPRESSION: Normal x-ray examination of the visualized cervical spine. Electronically Signed: Wilber Bernard DO at 23:04 EST ,
[2022-10-07] MEDS: cycloBENZAPRine HCl 10 MG Tablet PO (22:51)
[2022-10-07] MEDS: Ketorolac 60 MG/2 ML Vial IM (22:52)
[2022-10-07 23:21] VITALS: BP 124/80; PULSE 78; RESP 17; O2SAT 99
== END 2022-10-07 23:23 | disposition home or self-care (01) ==
PROVIDERS: Emergency Provider Emergency Medicine; PCP Family Medicine Geriatric Medicine; Visit Provider Emergency Medicine
DX: S16.1XXA Strain of muscle, fascia and tendon at neck level, initial encounter (principal); F17.210 Nicotine dependence, cigarettes, uncomplicated; Z86.16 Personal history of COVID-19; X58.XXXA Exposure to other specified factors, initial encounter
CPT/HCPCS: 72040; 96372; 99283

== ENCOUNTER → 2022-10-26 | Outpatient (CLI) | payer MEDICAID, SELFPAY | END | disposition home or self-care (01) | LOC: PSN 09:39 | PROVIDERS: PCP Family Medicine Geriatric Medicine; Visit Provider Family Medicine Geriatric Medicine | DX: R68.83 Chills (without fever) (principal) | CPT/HCPCS: 87635; 87807; 87804; C9803; U0003; U0005 ==